=== PATIENT | male | born 1990 | race African-American/Black ===

== ENCOUNTER 2018-03-14 09:06 | Emergency (ER) | payer MEDICAID ==
[~2018-03-14] VITALS: Ht 162.6 cm; Wt 52.0 kg
[~2018-03-14 09:06] MED LIST: ACET-2178 PO
[2018-03-14] MEDS ORDERED: DEXAMETHASONE 10 MG/ML VIAL IM SCH (12:45)
[2018-03-14] MEDS ORDERED: FAMOTIDINE 20MG TABLET PO ONE (12:45)
[2018-03-14] MEDS ORDERED: CEFTRIAXONE SODIUM 1 G/VIAL IM ONE (12:45)
[2018-03-14] MEDS ORDERED: DIPHENHYDRAMINE 25MG CAPSULE PO ONE (12:45)
[2018-03-14] MEDS ORDERED: LIDOCAINE HCL/EPINEPHRINE 1%-EPI 1:100,000 20 ML VIAL INFIL ONE (13:00)
[2018-03-14] MEDS ORDERED: LIDOCAINE HCL/EPINEPHRINE 1%-EPI 1:100,000 50 ML VIAL INFIL ONE (13:00)
[2018-03-14 13:17] VITALS: BP 118/64
== END 2018-03-14 13:18 | disposition home or self-care (01) ==
LOC: ER 09:06
DX: T63.481A Toxic effect of venom of other arthropod, accidental (unintentional), initial encounter (principal); Y92.89 Other specified places as the place of occurrence of the external cause
CPT/HCPCS: 96372; 99284; J0696; J1100; J3490; Q0163

== ENCOUNTER 2019-06-30 09:12 | Emergency (ER) | payer MEDICAID ==
[~2019-06-30] VITALS: Ht 165.1 cm; Wt 53.0 kg
[~2019-06-30 09:12] MED LIST changes: -ACET-2178 PO; +TOPUD PO
[2019-06-30 12:25] VITALS: BP 136/82
== END 2019-06-30 12:32 | disposition home or self-care (01) ==
LOC: ER 09:43
DX: S52.572A Other intraarticular fracture of lower end of left radius, initial encounter for closed fracture (principal); F12.10 Cannabis abuse, uncomplicated; F17.200 Nicotine dependence, unspecified, uncomplicated; W01.0XXA Fall on same level from slipping, tripping and stumbling without subsequent striking against object, initial encounter; Y93.89 Activity, other specified; Y92.89 Other specified places as the place of occurrence of the external cause; Y99.8 Other external cause status
CPT/HCPCS: 29125; 73110; 73130; 99283

== ENCOUNTER 2023-02-07 07:43 | Emergency (ER) | payer MEDICAID ==
[~2023-02-07] VITALS: Ht 160 cm; Wt 75.0 kg
[2023-02-07 07:52] VITALS: BP 126/94; PULSE 85; RESP 18; TEMP 98.6; O2SAT 100
[2023-02-07 08:18] LABS: CHLORIDE 102 mEq/L (98-107)
[2023-02-07 08:26] LABS: BASOPHILS % 0.6 % (0.0-2.0); EOSINOPHILS % 0.9 % (0.0-5.0); HEMATOCRIT. 45.5 % (42.0-52.0); HEMOGLOBIN. 15.5 g/dL (14.0-18.0); MEAN PLATELET VOLUME 7.7 fl (7.4-10.4); MONOCYTES % 6.9 % (2.0-8.0); NEUTROPHILS % 76.6 % (40.0-76.0); PLATELET 391 x1000/uL (130-400); RED BLOOD CELL COUNT 4.69 mill/uL (4.7-6.1); RED CELL DISTRIBUTION WIDTH 13.1 % (11.6-14.6)
[2023-02-07] MEDS ORDERED: VISCOUS LIDOCAINE 2% 15 ML UDC PO STA (09:16)
[2023-02-07] MEDS ORDERED: DICYCLOMINE 10 MG/5 ML ORAL SYR PO STA (09:16)
[2023-02-07] MEDS ORDERED: MAGNESIUM/ALUMINUM HYDROXIDE/SIMETHICONE 30ML UDC PO STA (09:16)
[2023-02-07] MEDS ORDERED: ONDANSETRON 4MG ODT PO STA (09:16)
[2023-02-07] MEDS ORDERED: FAMO-135 MT (09:18)
== END 2023-02-07 10:27 | disposition home or self-care (01) ==
LOC: ER 07:43
DX: R11.2 Nausea with vomiting, unspecified (principal); K29.70 Gastritis, unspecified, without bleeding
CPT/HCPCS: 99284; 80053; 85025; 36415; Q0162